=== PATIENT | female | born 1940 | race Caucasian/White ===

== ENCOUNTER 2017-02-14 13:48 | Emergency (ER) | payer OTHER ==
[~2017-02-14] VITALS: Ht 157.5 cm; Wt 70.0 kg
[~2017-02-14 13:48] MED LIST: ALPR-411 PO; ASPI-232; CARB25TA16 PO; CITA10TA8 PO; CITA20TA9 PO; COEN1CAP17; MULT-506 PO; OMEG10007 PO; PROB1CAP6
[2017-02-14 14:13] VITALS: TEMP 37; Ht 157.5 cm; Wt 70.0 kg
[2017-02-14 15:26] LABS: BASO % 0.3 %; BASO ABS # 0.02 K/uL (0-0.2); COMPLETE YES; EOS % 1.1 %; HEMATOCRIT 41.8 % (37-47); IG% 0.1 %; LYMPH % 28.7 %; LYMPH ABS # 2.05 K/uL (1.2-3.4); MEAN CELL VOLUME 89.9 fL (80-100); MEAN CORPUSCULAR HEMOGLOBIN 29.5 pg (25-34); MEAN CORPUSCULAR HGB CONC 32.8 g/dl (32-36); MEAN PLATELET VOLUME 10.5 fL (7.4-10.4); MONO % 7.6 %; NEUT % 62.2 %; PLATELET COUNT 201 K/uL (130-400); RED BLOOD COUNT 4.65 M/uL (4.2-5.4); WHITE BLOOD COUNT 7.14 K/uL (4.8-10.8)
[2017-02-14] MEDS ORDERED: CARB25TA16 PO (15:27)
[2017-02-14] MEDS ORDERED: ALUM-30 PO (15:27)
[2017-02-14] MEDS ORDERED: DESV100T PO (15:27)
[2017-02-14] MEDS ORDERED: PANT40TA PO (15:27)
[2017-02-14] MEDS ORDERED: QUET1TAB30 PO (15:27)
[2017-02-14] MEDS ORDERED: LORA-741 PO (15:27)
[2017-02-14] MEDS ORDERED: COLON CARE PO (15:27)
[2017-02-14] MEDS ORDERED: POLY1POW2 PO (15:27)
[2017-02-14] MEDS ORDERED: ASPI81TA28 PO (15:27)
[2017-02-14] MEDS ORDERED: RASA1TAB PO (15:27)
[2017-02-14 15:43] LABS: CREATININE 0.92 mg/dl (0.60-1.20); POTASSIUM 4.3 mmol/L (3.5-5.1)
--- NOTE | 2017-02-14 15:52 | DIAGNOSTIC IMAGING REPORT ---
PA CHEST WITH ABDOMINAL SERIES CLINICAL HISTORY: Right lower quadrant abdominal pain. FINDINGS: A PA chest radiograph is obtained. No prior studies are available for comparison at the time of dictation. The cardiomediastinal silhouette is unremarkable. There is atherosclerotic calcification of the thoracic aorta. The pulmonary vasculature is noncongested. Nonspecific interstitial thickening is observed and there is mild scalloping of right hemidiaphragm. No airspace consolidation, pleural effusion, or pneumothorax is seen. The skeletal structures are osteopenic. The bony thorax is grossly intact. Supine and erect abdominal radiograph are correlated with abdominal CT dated 01/01/2014. There is a nonobstructed abdominal bowel gas pattern noting moderate colonic fecal retention. No evidence of intraperitoneal free air is seen. There is no radiographic evidence of nephrolithiasis. Numerous phleboliths are observed in the pelvis. There is advanced atherosclerotic calcification of the abdominal aorta. Lumbosacral spondylosis is noted. The bony pelvis appears intact. IMPRESSION: 1. No acute cardiopulmonary abnormality. 2. Nonobstructed abdominal bowel gas pattern noting moderate colonic fecal retention. Electronically signed by: Ottoniel Barrera M.D. 02/14/2017 3:50 PM Dictated Date/Time: 02/14/2017 3:48 PM
[2017-02-14] MEDS ORDERED: LORAZEPAM 0.5 MG TAB PO STA (16:42)
[2017-02-14 18:14] VITALS: BP 111/61; PULSE 92; O2SAT 94
[2017-02-14] MEDS ORDERED: MELA3TAB PO (20:34)
--- NOTE | 2017-02-14 22:28 | EMERGENCY ROOM VISIT NOTE ---
History Report prepared by Candis: Taylor Medellin Under the Supervision of: Dr. Abhinav Sales M.D. First contact with patient: 14:58 Chief Complaint: ABDOMINAL PAIN Stated Complaint: STOMACH PAIN History of Present Illness The patient is a 76 year old female who presents to the Emergency Room with complaints of constant lower abdominal pain for the past month. Her pain is bilateral, but worse in the RLQ. She rates her current pain as an 8/10 in severity. The patient has been seen in the ER at [facility] in [place] three times for this pain. She was seen on February 02 and had blood work, an ECG, CT scan , and x-ray. Family states that she has continued to have pain. She has followed -up with her PCP, but they have not been told what is causing the patient's discomfort. Her PCP thought that it might be related to anxiety and prescribed the patient Ativan. She states that the Ativan helps to alleviate some of her pain. The patient has also been constipated and has been taking MiraLAX. This has helped to alleviate some of her constipation, but she is currently having bowel movements that are much smaller than usual. She states that her pain is constant and denies any modifying factors. Her pain is not worsened after eating. The patient denies fever, nausea, vomiting, diarrhea, hematochezia, melena, and urinary symptoms. She has a follow-up appointment with a GI specialist next week. Source of History: patient Onset: 1 month ago Position: abdomen (lower) Symptom Intensity: 8/10 Timing: constant Modifying Factors (Worsening): other (none) Modifying Factors (Relieving): other (Ativan/MiraLAX) Associated Symptoms: No nausea, No vomiting, No melena, No hematochezia, No diarrhea, No urinary symptoms Review of Systems See HPI for pertinent positives & negatives. A total of 10 systems reviewed and were otherwise negative. Past Medical & Surgical Medical Problems: (1) Parkinson disease Surgical Problems: (1) H/O heart artery stent (2) History of appendectomy Family History Hypertension Social History Smoking Status: Never Smoker Smokeless Tobacco Use: No Alcohol Use: none Drug Use: none Marital Status: Housing Status: lives with significant other Occupation Status: unemployed Current/Historical Medications Scheduled Aspirin (Aspirin Ec), 81 MG PO DAILY Desvenlafaxine Succinate Er (Pristiq), 100 MG PO DAILY Levodopa/Carbidopa (Sinemet Cr 25MG/100MG), 1 TAB PO QID Pantoprazole (Protonix), 40 MG PO DAILY Quetiapine Fumarate (Seroquel), 75 MG PO DAILY Rasagiline Mesylate (Azilect), 1 MG PO DAILY [Colon Care], 1 DOSE PO DAILY Scheduled PRN Alum & Mag Hydrox-Simethicone (Mylanta), 30 ML PO UD PRN for Heartburn Lorazepam (Ativan), 0.5 MG PO Q6H PRN for Anxiety Melatonin (Melatonin), 3 MG PO HS PRN for Insomnia Polyethylene Glycol 3350 (Bulk (Polyethylene Glycol 3350), 17 GM PO DAILY PRN for Constipation Allergies Coded Allergies: Fluoxetine (Verified Allergy, Unknown, unknown, 01/01/14) Physical Exam Vital Signs Date Time Temp Pulse Resp B/P (MAP) Pulse Ox O2 Delivery O2 Flow Rate FiO2 02/14/17 18:14 92 18 111/61 94 02/14/17 15:58 89 20 160/96 99 02/14/17 14:13 37.0 89 18 118/77 100 Room Air Physical Exam Constitutional: Vital signs reviewed. Eyes: Pupils are equal round reactive to light. Conjunctiva are noninjected. ENT: Pharynx is clear without erythema or exudate. Mucous membranes are moist. Neck supple without meningeal signs. Respiratory: Clear to auscultation bilaterally. Breath sounds are equal bilaterally. Cardiovascular: Regular rate and rhythm. No rubs or gallops. GI: Soft, nondistended. RLQ tenderness, no guarding. Mild periumbilical tenderness. Bowel sounds are present. Musculoskeletal: No peripheral edema. Integumentary: No cyanosis. Neurological: The patient is awake and alert. No focal deficits. Psychiatric: Normal affect. Medical Decision & Procedures ER Provider Diagnostic Interpretation: Radiology results as stated below per my review and the radiologist's interpretation: PA CHEST WITH ABDOMINAL SERIES CLINICAL HISTORY: Right lower quadrant abdominal pain. FINDINGS: A PA chest radiograph is obtained. No prior studies are available for comparison at the time of dictation. The cardiomediastinal silhouette is unremarkable. There is atherosclerotic calcification of the thoracic aorta. The pulmonary vasculature is noncongested. Nonspecific interstitial thickening is observed and there is mild scalloping of right hemidiaphragm. No airspace consolidation, pleural effusion, or pneumothorax is seen. The skeletal structures are osteopenic. The bony thorax is grossly intact. Supine and erect abdominal radiograph are correlated with abdominal CT dated 01/01/2014. There is a nonobstructed abdominal bowel gas pattern noting moderate colonic fecal retention. No evidence of intraperitoneal free air is seen. There is no radiographic evidence of nephrolithiasis. Numerous phleboliths are observed in the pelvis. There is advanced atherosclerotic calcification of the abdominal aorta. Lumbosacral spondylosis is noted. The bony pelvis appears intact. IMPRESSION: 1. No acute cardiopulmonary abnormality. 2. Nonobstructed abdominal bowel gas pattern noting moderate colonic fecal retention. Electronically signed by: Ottoniel Barrera M.D. 02/14/2017 3:50 PM Dictated Date/Time: 02/14/2017 3:48 PM Laboratory Results 02/14/17 15:15 Red Blood Count 4.65, Mean Corpuscular Volume 89.9, Mean Corpuscular Hemoglobin 29.5, Mean Corpuscular Hemoglobin Concent 32.8, Mean Platelet Volume 10.5, Neutrophils (%) (Auto) 62.2, Lymphocytes (%) (Auto) 28.7, Monocytes (%) (Auto) 7.6, Eosinophils (%) (Auto) 1.1, Basophils (%) (Auto) 0.3, Neutrophils # (Auto) 4.44, Lymphocytes # (Auto) 2.05, Monocytes # (Auto) 0.54, Eosinophils # (Auto) 0.08, Basophils # (Auto) 0.02 02/14/17 15:15 Test 02/14/17 15:15 White Blood Count 7.14 K/uL (4.8-10.8) Red Blood Count 4.65 M/uL (4.2-5.4) Hemoglobin 13.7 g/dL (12.0-16.0) Hematocrit 41.8 % (37-47) Mean Corpuscular Volume 89.9 fL (80-100) Mean Corpuscular Hemoglobin 29.5 pg (25-34) Mean Corpuscular Hemoglobin Concent 32.8 g/dl (32-36) Platelet Count 201 K/uL (130-400) Mean Platelet Volume 10.5 fL (7.4-10.4) Neutrophils (%) (Auto) 62.2 % Lymphocytes (%) (Auto) 28.7 % Monocytes (%) (Auto) 7.6 % Eosinophils (%) (Auto) 1.1 % Basophils (%) (Auto) 0.3 % Neutrophils # (Auto) 4.44 K/uL (1.4-6.5) Lymphocytes # (Auto) 2.05 K/uL (1.2-3.4) Monocytes # (Auto) 0.54 K/uL (0.11-0.59) Eosinophils # (Auto) 0.08 K/uL (0-0.5) Basophils # (Auto) 0.02 K/uL (0-0.2) RDW Standard Deviation 44.4 fL (36.4-46.3) RDW Coefficient of Variation 13.5 % (11.5-14.5) Immature Granulocyte % (Auto) 0.1 % Immature Granulocyte # (Auto) 0.01 K/uL (0.00-0.02) Anion Gap 8.0 mmol/L (3-11) Est Creatinine Clear Calc Drug Dose 46.2 ml/min Estimated GFR () 69.1 Estimated GFR (Non- 59.6 BUN/Creatinine Ratio 19.0 (10-20) Calcium Level 9.0 mg/dl (8.5-10.1) Total Bilirubin 0.6 mg/dl (0.2-1) Direct Bilirubin 0.1 mg/dl (0-0.2) Aspartate Amino Transf (AST/SGOT) 17 U/L (15-37) Alanine Aminotransferase (ALT/SGPT) 8 U/L (12-78) Alkaline Phosphatase 93 U/L (45-117) Total Protein 7.0 gm/dl (6.4-8.2) Albumin 3.5 gm/dl (3.4-5.0) Lipase 113 U/L (73-393) Laboratory results as reviewed by me. Medications Administered Medications (Trade) Dose Ordered Sig/Honorio Route Start Time Stop Time Status Last Admin Dose Admin Lorazepam (Ativan Tab) 0.5 mg NOW STAT PO 02/14/17 16:42 02/14/17 16:43 DC 02/14/17 16:53 0.5 MG ED Course 1458: The patient was evaluated in room C5. A complete history and physical exam was performed. 1638: I reassessed the patient and discussed her test results from both here and [facility]. She will be getting a soap suds enema. 1641: Ativan 0.5 mg PO 1746: I reassessed the patient at this time. She had a very large bowel movement and feels much better now. I discussed the results and treatment plan with the patient and her family. I answered all pertaining questions that they had. They expressed understanding and verbalized agreement. The patient will be discharged home. Medical Decision This is a 76-year-old female who presents with abdominal pain. Differential diagnosis includes abdominal mass, constipation, fecal retention, irritable bowel syndrome, pancreatitis. I did perform a limited focused review of portions of the patient's old chart on the electronic medical record. The patient has had no recent pertinent visits to this hospital. The patient was recently seen in the ER at [facility]. Records were obtained and reviewed by myself. She has had two CT scans and an x-ray of her abdomen. Case management was involved. CT scan on January 26 showed a small hiatal hernia and colonic diverticulosis without diverticulitis, no acute process. Medication Reconciliation: I attest that I have personally reviewed the patient' s current medication list. Blood Pressure Screening: Patient was found to have normal blood pressure on screening and does not require follow-up. I did evaluate the patient as noted above. The patient is presenting with abdominal pain she's had for over a month. She has been evaluated at [facility] times and has had a negative workup. She presents today for further evaluation. I did obtain records from [facility]. She had [address] scans and negative blood work as well as an EKG. She does have some mild periumbilical and right lower quadrant tenderness. IV access was established. I did order and personally review the patient's abdominal and chest x-rays as described above. I did order and review the patient's blood work as noted in the electronic medical record. I did discuss the test results with the patient and her family. I did recommend treatment with an enema. She requested to have her dose of Ativan and so she was given Ativan 0.5 mg sublingually. She was given a soapsuds enema. She had a large bowel movement after which she felt much better and her pain was relieved. I did recommend she continue using MiraLAX at home and drink plenty of fluids. 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 She was discharged in good condition. Impression Primary Impression: Right lower quadrant abdominal pain Additional Impression: Constipation Scribe Attestation The scribe's documentation has been prepared under my direct and personally reviewed by me in its entirety. I confirm that the note above accurately reflects all work, treatment, procedures, and medical decision making performed by me. Departure Information Dispostion Home / Self-Care Referrals [place] So D.O. (PCP) Forms HOME CARE DOCUMENTATION FORM, IMPORTANT VISIT INFORMATION Patient Instructions ED Constipation, My [facility] [address] Additional Instructions You have been examined and treated today on an emergency basis only. This is not a substitute for, or an effort to provide, complete comprehensive medical care. It is impossible to recognize and treat all injuries or illnesses in a single emergency department visit. It is therefore important that you follow up closely with your physician. Call as soon as possible for an appointment. Return for worsening symptoms or if you develop fever, vomiting, rectal bleeding or any other concerning symptoms. Problem Qualifiers Additional Impression: Constipation Constipation type: unspecified constipation type Qualified Codes: K59.00 - Constipation, unspecified
== END 2017-02-14 18:15 | disposition home or self-care (01) ==
LOC: C.EDB 13:50 → C.EDC 18:15
DX: R10.31 Right lower quadrant pain (principal); K59.00 Constipation, unspecified; G20 Parkinson's disease; Z98.61 Coronary angioplasty status; Z98.890 Other specified postprocedural states; Z79.82 Long term (current) use of aspirin; Z79.899 Other long term (current) drug therapy; Z88.8 Allergy status to other drugs, medicaments and biological substances; Z82.49 Family history of ischemic heart disease and other diseases of the circulatory system